=== PATIENT | female | born 1940 ===

== ENCOUNTER 2021-04-04 19:52 | Inpatient (IN) ==
[2021-04-04] MEDS: NS 0.9% 1000 ml BAG 1,000 ML IV SCH (23:56)
[2021-04-04 23:57] LABS: Rapid COVID-19 Molecular Undetected (Undetected)
[2021-04-05 00:02] LABS: Hematocrit 27 % (35-47); Hemoglobin 8.4 g/dL (12.0-16.0); Mean Corpuscular HGB Conc 31 g/dL (31-36); Mean Corpuscular Hemoglobin 25 pg (27-31); Mean Corpuscular Volume 79 fL (80-97); Mean Platelet Volume 7.5 fL (7.4-10.4); Platelet Count 502 10^3/uL (150-450); Red Cell Distribution Width 20 % (10-15); White Blood Count 23.6 10^3/uL (3.5-10.8)
[2021-04-05 00:21] LABS: Albumin 2.4 g/dL (3.2-5.2); Albumin/Globulin Ratio 0.9 (1-3); C Reactive Protein 184.4 mg/L (<8.01); Calcium 7.9 mg/dL (8.6-10.3); Globulin 2.7 g/dL (2-4); Potassium 3.5 mmol/L (3.5-5.0); Total Bilirubin 0.4 mg/dL (0.2-1.0); Total Protein 5.1 g/dL (6.4-8.9)
[2021-04-05 01:37] LABS: Anisocytosis 1+
[2021-04-05 01:38] LABS: ABS Basophils 0.1 10^3/ul (0-0.2); ABS Eosinophils 0.1 10^3/ul (0-0.6); ABS Lymphocytes 1.9 10^3/ul (1.0-4.8); ABS Monocytes 1.3 10^3/ul (0-0.8); ABS Neutrophils 20.2 10^3/ul (1.5-7.7); Acanthocytes 1+; Eosinophil % 0.5 %; Lymphocyte % 7.9 %; RBC Morphology Normal (Normal); TSH Ultra Thyroid Stim Horm 3.31 mcIU/mL (0.34-5.60)
[2021-04-05] MEDS ORDERED: Azithromycin 500 mg/250 mL NS IVPB ONE (08:00)
[2021-04-05] MEDS: Mometasone 220 MCG MDI INH SCH (09:00)
[2021-04-05] MEDS ORDERED: Budesonide Flexhaler 180 (NF) 180 MCG/ACT MDI INH SCH (09:00)
[2021-04-05] MEDS: Carbidopa/Levodop 10/100 MG TAB PO SCH ×2 (09:01→21:19)
[2021-04-05] MEDS: Latanoprost 0.005% 2.5 ml BTL BOTH EYES SCH (09:03)
[2021-04-05] MEDS: prednisoLONE 1% OPHTH.SUSP 5 ML OPHTH.SUSP LEFT EYE SCH ×4 (09:06→20:30)
[2021-04-05] MEDS: NS 0.9% 1000 ml BAG 1,000 ML IV SCH ×2 (11:09→17:53)
[2021-04-05 11:53] LABS: Influenza A Molecular Negative (Negative); Influenza B Molecular Negative (Negative)
[2021-04-05] MEDS: Cefepime 2 GM in Dextrose 2 GM/50 ML BAG IV SCH (14:23)
[2021-04-05] MEDS ORDERED: Lactated Ringers 1000 ml BAG 1,000 ML IV ONE (15:00)
[2021-04-05] MEDS: CMCS: Dorzolamide 2% OPTH (NF) 10 ML BTL BOTH EYES SCH (20:29)
[2021-04-05] MEDS ORDERED: cefTRIAXone 1 gm/50 mL NS BAG 1 GM/50 ML BAG IVPB SCH (22:00)
[2021-04-06] MEDS: Cefepime 2 GM in Dextrose 2 GM/50 ML BAG IV SCH ×2 (01:06→14:55)
[2021-04-06 06:16] LABS: Hematocrit 26 % (35-47); Hemoglobin 8.4 g/dL (12.0-16.0); Mean Corpuscular HGB Conc 32 g/dL (31-36); Mean Corpuscular Hemoglobin 25 pg (27-31); Mean Corpuscular Volume 78 fL (80-97); Mean Platelet Volume 7.6 fL (7.4-10.4); Platelet Count 556 10^3/uL (150-450); Red Blood Count 3.36 10^6 /uL (3.70-4.87); Red Cell Distribution Width 20 % (10-15); White Blood Count 17.5 10^3/uL (3.5-10.8)
[2021-04-06 06:41] LABS: C Reactive Protein 183.21 mg/L (<8.01); Calcium 7.6 mg/dL (8.6-10.3); Magnesium 1.9 mg/dL (1.9-2.7); Potassium 3.2 mmol/L (3.5-5.0)
[2021-04-06] MEDS: Mometasone 220 MCG MDI INH SCH (07:19)
[2021-04-06] MEDS ORDERED: Potassium Chlor 20 meq TAB.ER PO ONE (07:36)
[2021-04-06] MEDS ORDERED: Azithromycin 500 mg/250 ml NS 500 MG/250 ML BAG IVPB SCH (08:00)
[2021-04-06] MEDS ORDERED: D5W 1/2 NS 40 Meq KCL 1000 ml 1,000 ML IV SCH (10:00)
[2021-04-06] MEDS ORDERED: Potassium Chloride IV 40 MEQ in Lactated Ringers 1000 ml BAG 1,000 ML IVPB SCH (10:00)
[2021-04-06] MEDS: Latanoprost 0.005% 2.5 ml BTL BOTH EYES SCH (10:18)
[2021-04-06] MEDS: prednisoLONE 1% OPHTH.SUSP 5 ML OPHTH.SUSP LEFT EYE SCH ×4 (10:19→20:02)
[2021-04-06] MEDS: Carbidopa/Levodop 10/100 MG TAB PO SCH ×2 (11:23→19:54)
[2021-04-06] MEDS ORDERED: Perflutren Lipid Microsphere 3 ML VIAL ONE (14:39)
[2021-04-06 15:54] LABS: Urine Appearance Cloudy; Urine Bilirubin Negative (Negative); Urine Blood Negative (Negative); Urine Color Yellow; Urine Glucose Negative (Negative); Urine Ketones Trace (Negative); Urine Nitrite Negative (Negative); Urine Protein Negative (Negative); Urine Specific Gravity 1.016 (1.002-1.030); Urine Urobilinogen Negative (Negative)
[2021-04-06 16:05] LABS: Urine Bacteria Absent (Absent); Urine Red Blood Cell 1+(3-5/hpf) (Absent); Urine Squamous Epithelial Cell Present (Absent); Urine White Blood Cell 2+(11-20/hpf) (Absent)
[2021-04-06] MEDS: Enoxaparin 40 MG/0.4 ML SYR SUBCUT SCH (19:54)
[2021-04-06] MEDS: CMCS: Dorzolamide 2% OPTH (NF) 10 ML BTL BOTH EYES SCH (20:01)
[2021-04-07] MEDS: Cefepime 2 GM in Dextrose 2 GM/50 ML BAG IV SCH (01:50)
[2021-04-07] MEDS ORDERED: Haloperidol 5 mg/ml SDV IV/IM 5 MG/ML AMP IV SLOW PU ONE (03:25)
[2021-04-07 05:49] LABS: Hematocrit 28 % (35-47); Hemoglobin 8.8 g/dL (12.0-16.0); Mean Corpuscular HGB Conc 32 g/dL (31-36); Mean Corpuscular Hemoglobin 25 pg (27-31); Mean Corpuscular Volume 78 fL (80-97); Mean Platelet Volume 7.5 fL (7.4-10.4); Platelet Count 540 10^3/uL (150-450); Red Blood Count 3.57 10^6 /uL (3.70-4.87); Red Cell Distribution Width 20 % (10-15); White Blood Count 15.4 10^3/uL (3.5-10.8)
[2021-04-07 06:22] LABS: C Reactive Protein 189.88 mg/L (<8.01); Calcium 7.7 mg/dL (8.6-10.3); Magnesium 1.8 mg/dL (1.9-2.7); Potassium 3.3 mmol/L (3.5-5.0)
[2021-04-07] MEDS ORDERED: Magnesium Sulfate 2 gm BAG 2 GM/50 ML BAG IVPB ONE (06:37)
[2021-04-07] MEDS ORDERED: Potassium Chlor 20 meq TAB.ER PO ONE (06:39)
[2021-04-07] MEDS: Carbidopa/Levodop 10/100 MG TAB PO SCH ×2 (07:38→20:46)
[2021-04-07] MEDS: prednisoLONE 1% OPHTH.SUSP 5 ML OPHTH.SUSP LEFT EYE SCH ×4 (07:39→20:47)
[2021-04-07] MEDS: Latanoprost 0.005% 2.5 ml BTL BOTH EYES SCH (07:39)
[2021-04-07] MEDS: Mometasone 220 MCG MDI INH SCH (07:40)
[2021-04-07] MEDS ORDERED: Cefepime 2 GM in Dextrose 2 GM/50 ML BAG IV SCH (18:00)
[2021-04-07] MEDS: Enoxaparin 40 MG/0.4 ML SYR SUBCUT SCH (20:46)
[2021-04-07] MEDS: CMCS: Dorzolamide 2% OPTH (NF) 10 ML BTL BOTH EYES SCH (20:46)
[2021-04-08 08:15] LABS: Hematocrit 29 % (35-47); Hemoglobin 9.5 g/dL (12.0-16.0); Mean Corpuscular HGB Conc 32 g/dL (31-36); Mean Corpuscular Hemoglobin 25 pg (27-31); Mean Corpuscular Volume 78 fL (80-97); Mean Platelet Volume 7.2 fL (7.4-10.4); Platelet Count 554 10^3/uL (150-450); Red Blood Count 3.76 10^6 /uL (3.70-4.87); Red Cell Distribution Width 21 % (10-15); White Blood Count 17.2 10^3/uL (3.5-10.8)
[2021-04-08 08:29] LABS: Anion Gap 5 mmol/L (2-11); Blood Urea Nitrogen 11 mg/dL (6-24); C Reactive Protein 194.13 mg/L (<8.01); CO2 Carbon Dioxide 24 mmol/L (22-32); Calcium 7.9 mg/dL (8.6-10.3); Chloride 106 mmol/L (101-111); Glucose 81 mg/dL (70-100); Magnesium 2.1 mg/dL (1.9-2.7); Potassium 3.7 mmol/L (3.5-5.0); Sodium 135 mmol/L (135-145)
[2021-04-08] MEDS: prednisoLONE 1% OPHTH.SUSP 5 ML OPHTH.SUSP LEFT EYE SCH ×4 (08:31→21:17)
[2021-04-08] MEDS: Latanoprost 0.005% 2.5 ml BTL BOTH EYES SCH (08:32)
[2021-04-08] MEDS: Carbidopa/Levodop 10/100 MG TAB PO SCH ×2 (08:33→21:17)
[2021-04-08] MEDS: Mometasone 220 MCG MDI INH SCH (08:46)
[2021-04-08 10:44] LABS: Total Iron Binding Capacity 181 mcg/dL (250-450); Transferrin 129 mg/dL (203-362)
[2021-04-08 10:45] LABS: % Iron Saturation 11 % (15-55); Iron < 20 ug/dL (50-212); Unsaturated Iron Binding < 166 ug/dL
[2021-04-08 11:04] LABS: Ferritin 277.6 ng/mL (11-307)
[2021-04-08] MEDS ORDERED: Vancomycin 1,000 MG in NS 0.9% 250 ml 250 ML IVPB ONE ×2 (12:11→13:30)
[2021-04-08] MEDS ORDERED: Vancomycin per Pharmacy 1 EA NOTE FOLLOW UP SCH (13:00)
[2021-04-08] MEDS: D5W 1/2 NS 40 Meq KCL 1000 ml 1,000 ML IV SCH (13:58)
[2021-04-08] MEDS: Enoxaparin 40 MG/0.4 ML SYR SUBCUT SCH (21:17)
[2021-04-08] MEDS: CMCS: Dorzolamide 2% OPTH (NF) 10 ML BTL BOTH EYES SCH (21:17)
[2021-04-09] MEDS: D5W 1/2 NS 40 Meq KCL 1000 ml 1,000 ML IV SCH (00:01)
[2021-04-09] MEDS: Vancomycin 1000 MG in NS 0.9% 250 ML IVPB SCH ×2 (02:25→13:43)
[2021-04-09 06:12] LABS: Hematocrit 30 % (35-47); Hemoglobin 9.5 g/dL (12.0-16.0); Mean Corpuscular HGB Conc 31 g/dL (31-36); Mean Corpuscular Hemoglobin 25 pg (27-31); Mean Corpuscular Volume 79 fL (80-97); Mean Platelet Volume 7.7 fL (7.4-10.4); Platelet Count 602 10^3/uL (150-450); Red Blood Count 3.82 10^6 /uL (3.70-4.87); Red Cell Distribution Width 21 % (10-15); White Blood Count 18.7 10^3/uL (3.5-10.8)
[2021-04-09 06:29] LABS: C Reactive Protein 190.55 mg/L (<8.01); Calcium 7.7 mg/dL (8.6-10.3); Magnesium 1.9 mg/dL (1.9-2.7); Potassium 4.2 mmol/L (3.5-5.0)
[2021-04-09] MEDS: prednisoLONE 1% OPHTH.SUSP 5 ML OPHTH.SUSP LEFT EYE SCH ×4 (08:23→20:33)
[2021-04-09] MEDS: Latanoprost 0.005% 2.5 ml BTL BOTH EYES SCH (08:24)
[2021-04-09] MEDS: Carbidopa/Levodop 10/100 MG TAB PO SCH ×2 (08:25→20:32)
[2021-04-09] MEDS: Mometasone 220 MCG MDI INH SCH (08:47)
[2021-04-09] MEDS: Lactated Ringers 1000 ml BAG IV.FLUID IV ONE ×2 (08:57→10:06)
[2021-04-09] MEDS: Cefepime 2 GM in Dextrose 2 GM/50 ML BAG IV SCH ×2 (10:06→20:32)
[2021-04-09 11:58] LABS: Erythrocyte Sed Rate 45 mm/Hr (0-29)
[2021-04-09] MEDS: CMCS: Dorzolamide 2% OPTH (NF) 10 ML BTL BOTH EYES SCH (20:32)
[2021-04-09] MEDS: Enoxaparin 40 MG/0.4 ML SYR SUBCUT SCH (20:32)
[2021-04-10] MEDS: Vancomycin 1000 MG in NS 0.9% 250 ML IVPB SCH ×2 (02:34→16:44)
[2021-04-10 05:53] LABS: Hematocrit 27 % (35-47); Hemoglobin 8.5 g/dL (12.0-16.0); Mean Corpuscular HGB Conc 31 g/dL (31-36); Mean Corpuscular Hemoglobin 25 pg (27-31); Mean Corpuscular Volume 79 fL (80-97); Mean Platelet Volume 7.1 fL (7.4-10.4); Platelet Count 500 10^3/uL (150-450); Red Blood Count 3.41 10^6 /uL (3.70-4.87); Red Cell Distribution Width 20 % (10-15); White Blood Count 17.6 10^3/uL (3.5-10.8)
[2021-04-10 06:10] LABS: C Reactive Protein 163.7 mg/L (<8.01); Calcium 7.6 mg/dL (8.6-10.3); Magnesium 1.8 mg/dL (1.9-2.7); Potassium 3.8 mmol/L (3.5-5.0)
[2021-04-10] MEDS ORDERED: Magnesium Sulfate 2 gm BAG 2 GM/50 ML BAG IVPB ONE (06:30)
[2021-04-10] MEDS: Mometasone 220 MCG MDI INH SCH (08:46)
[2021-04-10] MEDS: prednisoLONE 1% OPHTH.SUSP 5 ML OPHTH.SUSP LEFT EYE SCH ×4 (08:57→20:52)
[2021-04-10] MEDS: Latanoprost 0.005% 2.5 ml BTL BOTH EYES SCH (08:57)
[2021-04-10] MEDS: Cefepime 2 GM in Dextrose 2 GM/50 ML BAG IV SCH ×2 (10:21→20:51)
[2021-04-10] MEDS: metroNIDAZOLE IV 500 MG/100ML 500 MG/100 ML BAG IVPB SCH ×2 (11:06→18:39)
[2021-04-10] MEDS ORDERED: fentaNYL 100 mcg/2 ml 50 MCG/ML VIAL ONE (11:53)
[2021-04-10] MEDS ORDERED: Midazolam 5 mg/5 ml VIAL 1 mg/ml 5 ml VIAL (5 mg) ONE (11:53)
[2021-04-10] MEDS ORDERED: Naloxone 0.4 mg VIAL 0.4 mg/ml 1 ml VIAL ONE (11:53)
[2021-04-10] MEDS ORDERED: Flumazenil 0.5 mg/5 ml 0.1 MG/ML 5 ml VIAL ONE (11:53)
[2021-04-10] MEDS ORDERED: Vancomycin Trough Check NOTE FOLLOW UP ONE (13:30)
[2021-04-10] MEDS: Carbidopa/Levodop 10/100 MG TAB PO SCH ×2 (14:35→20:51)
[2021-04-10] MEDS: Enoxaparin 40 MG/0.4 ML SYR SUBCUT SCH (20:51)
[2021-04-10] MEDS: CMCS: Dorzolamide 2% OPTH (NF) 10 ML BTL BOTH EYES SCH (20:52)
[2021-04-11] MEDS: Vancomycin 1000 MG in NS 0.9% 250 ML IVPB SCH ×2 (01:55→12:58)
[2021-04-11] MEDS: metroNIDAZOLE IV 500 MG/100ML 500 MG/100 ML BAG IVPB SCH ×3 (03:41→18:07)
[2021-04-11 06:52] LABS: Hematocrit 27 % (35-47); Hemoglobin 8.6 g/dL (12.0-16.0); Mean Corpuscular HGB Conc 32 g/dL (31-36); Mean Corpuscular Hemoglobin 25 pg (27-31); Mean Corpuscular Volume 79 fL (80-97); Mean Platelet Volume 7.4 fL (7.4-10.4); Platelet Count 475 10^3/uL (150-450); Red Blood Count 3.42 10^6 /uL (3.70-4.87); Red Cell Distribution Width 21 % (10-15)
[2021-04-11 07:16] LABS: C Reactive Protein 212.39 mg/L (<8.01); Calcium 7.5 mg/dL (8.6-10.3); Potassium 3.3 mmol/L (3.5-5.0)
[2021-04-11] MEDS ORDERED: Potassium Chlor 20 meq TAB.ER PO ONE (07:38)
[2021-04-11] MEDS: Cefepime 2 GM in Dextrose 2 GM/50 ML BAG IV SCH ×2 (08:05→20:18)
[2021-04-11] MEDS: Carbidopa/Levodop 10/100 MG TAB PO SCH ×2 (08:05→20:18)
[2021-04-11] MEDS: Latanoprost 0.005% 2.5 ml BTL BOTH EYES SCH (08:12)
[2021-04-11] MEDS: prednisoLONE 1% OPHTH.SUSP 5 ML OPHTH.SUSP LEFT EYE SCH ×4 (08:12→20:22)
[2021-04-11] MEDS: Mometasone 220 MCG MDI INH SCH (08:43)
[2021-04-11 09:29] LABS: ABS Basophils 0.1 10^3/ul (0-0.2); ABS Eosinophils 0.1 10^3/ul (0-0.6); ABS Lymphocytes 1.2 10^3/ul (1.0-4.8); ABS Monocytes 1.6 10^3/ul (0-0.8); ABS Neutrophils 27.6 10^3/ul (1.5-7.7); Eosinophil % 0.3 %; Lymphocyte % 3.8 %
[2021-04-11 12:55] LABS: INR 1.44 (0.86-1.15)
[2021-04-11 16:17] LABS: Body Fluid Source Cerebral Spinal
[2021-04-11 16:39] LABS: CSF Glucose 55 mg/dL (40-70)
[2021-04-11 16:40] LABS: Body Fluid Appearance Clear; Body Fluid Color Colorless; CSF Tube # 4
[2021-04-11 17:07] LABS: Body Fluid WBC 12 /mcL
[2021-04-11 17:11] LABS: Body Fluid Mono 3 %; Body Fluid Total Cells Counted 200
[2021-04-11] MEDS: Enoxaparin 40 MG/0.4 ML SYR SUBCUT SCH (20:18)
[2021-04-11] MEDS: CMCS: Dorzolamide 2% OPTH (NF) 10 ML BTL BOTH EYES SCH (20:18)
[2021-04-12] MEDS: Vancomycin 1000 MG in NS 0.9% 250 ML IVPB SCH ×2 (01:08→14:42)
[2021-04-12] MEDS: metroNIDAZOLE IV 500 MG/100ML 500 MG/100 ML BAG IVPB SCH ×3 (03:16→19:29)
[2021-04-12 05:07] LABS: Hematocrit 26 % (35-47); Mean Corpuscular HGB Conc 31 g/dL (31-36); Mean Corpuscular Hemoglobin 24 pg (27-31); Mean Corpuscular Volume 78 fL (80-97); Mean Platelet Volume 7.5 fL (7.4-10.4); Platelet Count 454 10^3/uL (150-450); Red Blood Count 3.28 10^6 /uL (3.70-4.87); Red Cell Distribution Width 21 % (10-15); White Blood Count 27.7 10^3/uL (3.5-10.8)
[2021-04-12 05:26] LABS: C Reactive Protein 201.71 mg/L (<8.01); Calcium 7.4 mg/dL (8.6-10.3); Potassium 3.3 mmol/L (3.5-5.0)
[2021-04-12] MEDS ORDERED: Potassium Chlor 20 meq TAB.ER PO ONE (07:12)
[2021-04-12 08:00] LABS: Magnesium 1.9 mg/dL (1.9-2.7)
[2021-04-12] MEDS: Mometasone 220 MCG MDI INH SCH (08:09)
[2021-04-12] MEDS: Carbidopa/Levodop 10/100 MG TAB PO SCH ×2 (09:16→21:24)
[2021-04-12] MEDS: Cefepime 2 GM in Dextrose 2 GM/50 ML BAG IV SCH ×2 (09:16→21:15)
[2021-04-12] MEDS: Latanoprost 0.005% 2.5 ml BTL BOTH EYES SCH (09:17)
[2021-04-12] MEDS ORDERED: Iohexol 300 (CONTRAST) 10 ML SDV IV ONE (10:27)
[2021-04-12 15:59] LABS: Creatine Kinase 67 U/L (10-223)
[2021-04-12 16:29] LABS: LDH 195 U/L (140-271)
[2021-04-12] MEDS ORDERED: Morphine 2 MG/ML SYRINGE IV ONE (18:00)
[2021-04-12] MEDS: Enoxaparin 40 MG/0.4 ML SYR SUBCUT SCH (21:24)
[2021-04-12] MEDS: CMCS: Dorzolamide 2% OPTH (NF) 10 ML BTL BOTH EYES SCH (21:25)
[2021-04-12 23:35] LABS: Hepatitis B Surface Ab Not Immune (Immune)
[2021-04-12 23:36] LABS: Hepatitis C Antibody Negative (Negative)
[2021-04-13] MEDS: Carbidopa/Levodop 10/100 MG TAB PO SCH ×3 (00:07→22:17)
[2021-04-13] MEDS: Vancomycin 1000 MG in NS 0.9% 250 ML IVPB SCH ×2 (01:13→15:17)
[2021-04-13] MEDS: metroNIDAZOLE IV 500 MG/100ML 500 MG/100 ML BAG IVPB SCH ×3 (03:58→22:19)
[2021-04-13 04:50] LABS: Hematocrit 24 % (35-47); Hemoglobin 7.3 g/dL (12.0-16.0); Mean Corpuscular HGB Conc 31 g/dL (31-36); Mean Corpuscular Hemoglobin 25 pg (27-31); Mean Corpuscular Volume 80 fL (80-97); Mean Platelet Volume 7.4 fL (7.4-10.4); Platelet Count 428 10^3/uL (150-450); Red Blood Count 2.95 10^6 /uL (3.70-4.87); Red Cell Distribution Width 21 % (10-15); White Blood Count 24.1 10^3/uL (3.5-10.8)
[2021-04-13 05:08] LABS: C Reactive Protein 176.6 mg/L (<8.01); Calcium 7.5 mg/dL (8.6-10.3); Magnesium 1.9 mg/dL (1.9-2.7); Potassium 3.4 mmol/L (3.5-5.0)
[2021-04-13] MEDS: Mometasone 220 MCG MDI INH SCH (09:05)
[2021-04-13] MEDS ORDERED: Morphine 2 MG/ML SYRINGE IM ONE (10:28)
[2021-04-13] MEDS: Latanoprost 0.005% 2.5 ml BTL BOTH EYES SCH (10:57)
[2021-04-13] MEDS: Cefepime 2 GM in Dextrose 2 GM/50 ML BAG IV SCH ×2 (11:44→22:20)
[2021-04-13] MEDS ORDERED: Vancomycin Trough Check NOTE FOLLOW UP ONE (13:30)
[2021-04-13 14:25] LABS: Anaplasma phagocytophilum Negative (Negative); B. miyamotoi PCR, B Negative (Negative); Babesia divergens/MO-1 Negative (Negative); Babesia ducani Negative (Negative); Ehrlichia chaffeensis Negative (Negative); Ehrlichia ewingii/canis Negative (Negative); Ehrlichia muris eauclairensis Negative (Negative)
[2021-04-13 16:05] LABS: CSF VDRL Negative (Negative)
[2021-04-13] MEDS ORDERED: Buffered Lidocaine 1% SYRIN 1 ml INTRADERM ONE (17:58)
[2021-04-13] MEDS ORDERED: D5W 1/4 NS 1000 ml BAG 1,000 ML IV SCH (18:00)
[2021-04-13] MEDS ORDERED: Morphine 10 MG/ML VIAL (1 ml) IM PRN (18:01)
[2021-04-13] MEDS ORDERED: Morphine 2 MG/ML SYRINGE IM PRN (18:06)
[2021-04-13 21:24] LABS: HSV 1 PCR, CSF Negative (Negative); HSV 2 PCR, CSF Negative (Negative)
[2021-04-13] MEDS: Enoxaparin 40 MG/0.4 ML SYR SUBCUT SCH (22:22)
[2021-04-13] MEDS: CMCS: Dorzolamide 2% OPTH (NF) 10 ML BTL BOTH EYES SCH (22:23)
[2021-04-14] MEDS: metroNIDAZOLE IV 500 MG/100ML 500 MG/100 ML BAG IVPB SCH ×2 (02:02→12:17)
[2021-04-14] MEDS: Morphine ORAL.SOLN 10 mg 2 mg/ml UDC 5 ml (10 mg) PO PRN (03:56)
[2021-04-14 05:05] LABS: Hematocrit 26 % (35-47); Mean Corpuscular HGB Conc 31 g/dL (31-36); Mean Corpuscular Hemoglobin 24 pg (27-31); Mean Corpuscular Volume 80 fL (80-97); Mean Platelet Volume 7.4 fL (7.4-10.4); Platelet Count 441 10^3/uL (150-450); Red Blood Count 3.28 10^6 /uL (3.70-4.87); Red Cell Distribution Width 21 % (10-15); White Blood Count 27.1 10^3/uL (3.5-10.8)
[2021-04-14 05:24] LABS: Calcium 7.8 mg/dL (8.6-10.3); Potassium 3.1 mmol/L (3.5-5.0)
[2021-04-14 05:26] LABS: Vancomycin Random 19.8 mcg/mL
[2021-04-14] MEDS ORDERED: Vancomycin Random Level NOTE FOLLOW UP ONE (06:00)
[2021-04-14 07:18] LABS: C Reactive Protein 157.14 mg/L (<8.01)
[2021-04-14] MEDS: Mometasone 220 MCG MDI INH SCH (07:29)
[2021-04-14 08:18] LABS: Magnesium 1.8 mg/dL (1.9-2.7)
[2021-04-14] MEDS: Cefepime 2 GM in Dextrose 2 GM/50 ML BAG IV SCH (10:36)
[2021-04-14] MEDS: Latanoprost 0.005% 2.5 ml BTL BOTH EYES SCH (10:38)
[2021-04-14] MEDS ORDERED: Potassium Chloride IV 40 MEQ in Lactated Ringers 1000 ml BAG 1,000 ML IVPB SCH (11:30)
[2021-04-14 11:35] LABS: ABS Basophils 0.1 10^3/ul (0-0.2); ABS Eosinophils 0.1 10^3/ul (0-0.6); ABS Lymphocytes 1.3 10^3/ul (1.0-4.8); ABS Monocytes 1.4 10^3/ul (0-0.8); ABS Neutrophils 24.2 10^3/ul (1.5-7.7); Eosinophil % 0.2 %; Lymphocyte % 4.7 %
[2021-04-14] MEDS: Carbidopa/Levodop 10/100 MG TAB PO SCH (11:59)
[2021-04-14 12:49] LABS: Myeloperoxidase Antibody 2.2 U; Proteinase 3 0.2 U
[2021-04-14 17:34] LABS: Albumin 1.7 g/dL (3.4-4.7); Albumin/Globulin Ratio 0.56; Gamma Globulin 1.3 g/dL (0.6-1.6); Total Protein(PEP) 4.8 g/dL (6.3 - 7.9)
[2021-04-14 18:40] LABS: Phospholipid Ab IgG < 9.4 GPL; Phospholipid Ab IgM, S < 9.4 MPL
[2021-04-14 19:28] LABS: Beta 2 Glycoprotein IgG <9.4 U/mL
[2021-04-14 23:05] LABS: C-ANCA Negative (Negative); P-ANCA Positive (Negative)
[2021-04-15] MEDS: Morphine ORAL.SOLN 10 mg 2 mg/ml UDC 5 ml (10 mg) PO PRN ×2 (03:28→23:24)
[2021-04-15] MEDS ORDERED: Vancomycin Random Level NOTE FOLLOW UP ONE (06:00)
[2021-04-15] MEDS ORDERED: LORazepam 2 mg VIAL 1 ml IV PUSH PRN (07:09)
[2021-04-15] MEDS ORDERED: Lorazepam PYXIS KEY PRN (07:09)
[2021-04-15 18:30] VITALS: BP 118/51
[2021-04-16] MEDS: Morphine 2 MG/ML SYRINGE IV PRN (11:28)
[2021-04-17] MEDS: Morphine ORAL.SOLN 10 mg 2 mg/ml UDC 5 ml (10 mg) PO PRN (02:19)
[2021-04-17] MEDS: Morphine 2 MG/ML SYRINGE IV PRN ×2 (05:11→12:43)
[2021-04-17 15:18] LABS: TB1 Ag minus Nil Result -0.01 IU/mL; TB2 Ag minus Nil Result -0.01 IU/mL
[2021-04-17 15:25] LABS: QuantiferonTb Gold Plus Result Indeterminate (Negative)
[2021-04-18 10:05] LABS: AGNA-1, CSF Negative titer (<1:2); Amphiphysin Ab, CSF Negative titer (<1:2); CRMP-5-IgG, CSF Negative titer (<1:2); PCA-1, CSF Negative titer (<1:2); PCA-2, CSF Negative titer (<1:2); PCA-Tr, CSF Negative titer (<1:2)
[2021-04-19 16:51] LABS: Albumin 3.9 mg/dL; Albumin/Globulin Ratio 0.08; Gamma Globulin 21.3 mg/dL; Protein,Total, Random Urine 56 mg/dL
== END 2021-04-17 14:20 | DRG 872 ==
LOC: ED 19:52 → SUATTDRO 21:55 → EDHOLD 21:55 → MED 21:56
PROVIDERS: ADMIT Internal Medicine; ATTEND Internal Medicine